=== PATIENT | male | born 1955 | race Caucasian/White ===

== ENCOUNTER 2018-05-03 08:17 | Emergency (ER) | payer BC, OTHER ==
[2018-05-03] MEDS ORDERED: Lidocaine 2% Jelly 5 ML Urojet MUCMEM ONE (08:45)
[2018-05-03] MEDS: Lidocaine 2% HCl 6 ML JEL.PF.APP ONE ×2 (09:00→09:15)
--- NOTE | 2018-05-03 09:31 | EDM.PDOC ---
ED HPI GENERAL MEDICAL PROBLEM - General Chief Complaint: Genitourinary Problem Stated Complaint: BLOD CLOT Time Seen by Provider: 05/03/18 09:28 Source of Information: Reports: Patient History Limitations: Reports: No Limitations - History of Present Illness INITIAL COMMENTS - FREE TEXT/NARRATIVE: Presents with inability to urinate since 12 midnight. Patient reports decreased stream x 3-4 weeks but no gross hematuria until yesterday at noon, then began to pass blood clots later in the evening. History of green-light laser transurethral resection of prostate with fulguration of bladder diverticula by Dr. Alfonso in 09/2010. Lower abdomen Pain Score (Numeric/FACES): 5 - Related Data Allergies Allergy/AdvReac Type Severity Reaction Status Date / Time No Known Allergies Allergy Verified 05/03/18 08:26 Home Meds: Home Meds Aspirin [Adult Aspirin] 81 mg PO DAILY 05/03/18 [History] Cyanocobalamin (Vitamin B-12) [Vitamin B-12] 2,500 mcg SL Q48H 05/03/18 [History ] Rosuvastatin Calcium 10 mg DAILY 05/03/18 [History] Triamcinolone Acetonide [Triamcinolone Acetonide 0.1% Crm] 1 applic .XX BID [History] Past Medical History Cardiovascular History: Reports: High Cholesterol Genitourinary History: Reports: BPH Musculoskeletal History: Reports: Other (See Below) Other Musculoskeletal History: dislocated disc in neck Endocrine/Metabolic History: Reports: Diabetes Mellitus, Type 3c Other Endocrine/Metabolic History: prediabetes Dermatologic History: Reports: Eczema - Past Surgical History Cardiovascular Surgical History: Reports: None GI Surgical History: Reports: Colonoscopy, Hernia Repair/Other Male Surgical History: Reports: TURP-Transurethral Resection of Prostate, Other (See Below) Other Male Surgeries/Procedures: bladder surgery Neurological Surgical History: Reports: C-Spine, Other (See Below) Other Neurological Surgeries/Procedures: neck surgery Social & Family History - Family History Family Medical History: Noncontributory - Tobacco Use Smoking Status *Q: Current Every Day Smoker Tobacco Use Within Last Twelve Months: Cigarettes Years of Tobacco use: 45 Packs/Tins Daily: 1 - Caffeine Use Caffeine Use: Reports: Other Other Caffeine Use: no doze pills - Recreational Drug Use Recreational Drug Use: Yes ED ROS GENERAL - Review of Systems Review Of Systems: See Below Constitutional: Reports: No Symptoms HEENT: Reports: No Symptoms Respiratory: Reports: No Symptoms Cardiovascular: Reports: No Symptoms Endocrine: Reports: No Symptoms GI/Abdominal: Reports: Abdominal Pain (suprapubic) : Reports: Hematuria, Urinary Retention Musculoskeletal: Reports: No Symptoms Skin: Reports: No Symptoms Neurological: Reports: No Symptoms Psychiatric: Reports: No Symptoms Hematologic/Lymphatic: Reports: No Symptoms Immunologic: Reports: No Symptoms ED EXAM, RENAL/ - Physical Exam Exam: See Below Exam Limited By: No Limitations General Appearance: Alert, WD/WN, Moderate Distress Ears: Normal External Exam Nose: Normal Inspection Throat/Mouth: No Airway Compromise Head: Atraumatic, Normocephalic Neck: Normal Inspection Respiratory/Chest: No Respiratory Distress, Lungs Clear, Normal Breath Sounds Cardiovascular: Regular Rate, Rhythm, No Murmur GI/Abdominal: Normal Bowel Sounds, Guarding, Tender (moderate suprapubic) Neurological: Alert, No Motor/Sensory Deficits Skin Exam: Warm, Intact Course - Vital Signs Last Recorded V/S: Last Vital Signs Temp 36.4 C 05/03/18 08:20 Pulse 84 05/03/18 08:20 Resp 20 05/03/18 08:20 BP 141/81 H 05/03/18 08:20 Pulse Ox 100 05/03/18 08:20 - Orders/Labs/Meds Orders: Active Orders 24 hr Category Date Time Status Beatty Catheter Insertion [Insert Urinary Catheter] [OM. Care 05/03/18 09:00 Ordered PC] Q24H Urinary Catheter Assessment [RC] QSHIFT Care 05/03/18 08:57 Active URINALYSIS W/MICROSCOPIC [UA W/MICROSCOPIC] [URIN] Stat Lab 05/03/18 08:59 Ordered Sodium Chloride 0.9% [Saline Flush] Med 05/03/18 10:12 Ordered 10 ml FLUSH ASDIRECTED PRN Medication Orders Sodium Chloride (Saline Flush) 10 ml FLUSH ASDIRECTED PRN PRN Reason: Keep Vein Open Labs: Laboratory Tests 05/03/18 05/03/18 05/03/18 Range/Units 09:40 09:40 09:40 WBC 14.5 H (4.5-12.0) X10-3/uL RBC 5.23 (4.30-5.75) x10(6)uL Hgb 16.0 H (11.5-15.5) g/dL Hct 46.8 (30.0-51.3) % MCV 89.5 (80-96) fL MCH 30.5 (27.7-33.6) pg MCHC 34.1 (32.2-35.4) g/dL RDW 12.8 (11.5-15.5) % Plt Count 198 (125-369) X10(3)uL MPV 8.5 (7.4-10.4) fL Add Manual Diff Yes Neutrophils % (Manual) 81 (46-82) % Lymphocytes % (Manual) 16 (13-37) % Monocytes % (Manual) 3 L (4-12) % PT 10.3 (8.7-11.1) INR 1.06 (0.89-1.13) Sodium 140 (135-145) mmol/L Potassium 4.5 (3.5-5.3) mmol/L Chloride 104 (100-110) mmol/L Carbon Dioxide 23 (21-32) mmol/L BUN 39 H (7-18) mg/dL Creatinine 1.5 H (0.70-1.30) mg/dL Est Cr Clr Drug Dosing 22.34 mL/min Estimated GFR (MDRD) 47 L (>60) BUN/Creatinine Ratio 26.0 H (9-20) Glucose 179 H (80-116) mg/dL Calcium 9.0 (8.6-10.2) mg/dL Total Bilirubin 1.6 H (0.1-1.3) mg/dL AST 11 (5-25) IU/L ALT 22 (12-36) U/L Alkaline Phosphatase 98 (56-112) IU/L Total Protein 7.4 (6.0-8.0) g/dL Albumin 3.6 (3.2-4.6) g/dL Globulin 3.8 g/dL Albumin/Globulin Ratio 1.0 Meds: Medications Generic Name Dose Route Start Last Admin Trade Name Freq PRN Reason Stop Dose Admin Sodium Chloride 10 ml 05/03/18 10:12 Saline Flush FLUSH ASDIRECTED PRN Keep Vein Open Discontinued Medications Generic Name Dose Route Start Last Admin Trade Name Freq PRN Reason Stop Dose Admin Lidocaine HCl 5 ml 05/03/18 08:45 Xylocaine 2% Jelly MUCMEM 05/03/18 08:46 ONETIME ONE Lidocaine HCl 6 ml 05/03/18 09:11 Xylocaine 2% Jelly MUCMEM 05/03/18 09:12 ONETIME ONE Lidocaine HCl Confirm 05/03/18 09:13 Glydo Administered 05/03/18 09:14 Dose 6 ml .ROUTE .[facility] ONE - Re-Assessments/Exams Free Text/Narrative Re-Assessment/Exam: 05/03/18 10:23 Several attempts were made to place a cuday tip catheter, using a range of sizes down to 14F, these attempts were unsuccessful. A 12F straight cath was inserted successfully, 800cc bloody urine was collected, straight cath removed. Symptoms resolved. I then attempted to place a 12F balloon catheter, this was unsuccessful; then attempted to replace the 12F straight cath, however this was also unsuccessful. Dr. Alfonso accepted patient for transfer to [facility] ED, patient elected to drive himself there. Vitals stable, patient in no acute distress. 05/03/18 10:32 Departure - Departure Time of Disposition: 10:30 Disposition: DC/Tfer to Acute Hospital 02 Condition: Fair Clinical Impression: Urinary retention Hematuria Qualifiers: Hematuria type: gross Qualified Code(s): R31.0 - Gross hematuria - Discharge Information *PRESCRIPTION DRUG MONITORING PROGRAM REVIEWED*: No *COPY OF PRESCRIPTION DRUG MONITORING REPORT IN PATIENT LORRAINE: Not Applicable Referrals: Laila Corona, SENIOR CYTOTECHNOLOGIST [Primary Care Provider] - Forms: ED Department Discharge - My Orders Last 24 Hours: My Active Orders 05/03/18 08:57 Urinary Catheter Assessment [RC] QSGAFT 05/03/18 08:59 URINALYSIS W/MICROSCOPIC [UA W/MICROSCOPIC] [URIN] Stat 05/03/18 09:00 Beatty Catheter Insertion [Insert Urinary Catheter] [OM.PC] Q24H 05/03/18 10:12 Sodium Chloride 0.9% [Saline Flush] 10 ml FLUSH ASDIRECTED PRN - Assessment/Plan Last 24 Hours: My Active Orders 05/03/18 08:57 Urinary Catheter Assessment [RC] QSHIFT 05/03/18 08:59 URINALYSIS W/MICROSCOPIC [UA W/MICROSCOPIC] [URIN] Stat 05/03/18 09:00 Beatty Catheter Insertion [Insert Urinary Catheter] [OM.PC] Q24H 05/03/18 10:12 Sodium Chloride 0.9% [Saline Flush] 10 ml FLUSH ASDIRECTED PRN
[2018-05-03] MEDS ORDERED: Sodium Chloride 0.9% 10 ML Syringe FLUSH PRN (10:12)
[2018-05-03] MEDS: Lidocaine 2% Jelly 30 ML Tube MUCMEM ONE ×2 (20:28→20:29)
== END 2018-05-03 10:54 ==
LOC: FB.ED 08:17
DX: R33.9 Retention of urine, unspecified (principal); R31.0 Gross hematuria; F17.210 Nicotine dependence, cigarettes, uncomplicated; Z79.82 Long term (current) use of aspirin
CPT/HCPCS: 36415; 51701; 80053; 81001; 85025; 85610; 87086; 87088; 87186; 99284; A9270